=== PATIENT | female | born 1960 | race Caucasian/White ===

== ENCOUNTER 2018-02-13 14:49 | Emergency (ER) | payer OTHER | END 2018-02-13 16:42 | disposition home or self-care (01) | LOC: FTE 14:49 | DX: J20.9 Acute bronchitis, unspecified (principal) | CPT/HCPCS: 71045; 99283-25 ==

== ENCOUNTER 2019-02-06 19:59 | Emergency (ER) | payer OTHER ==
[2019-02-06] MEDS: morphine 4 MG/ML VIAL IV (21:07)
[2019-02-06] MEDS: ONDANSETRON 4 MG INJ IV (21:07)
== END 2019-02-06 22:54 | disposition home or self-care (01) ==
LOC: E/R 19:59
DX: R10.13 Epigastric pain (principal); R11.2 Nausea with vomiting, unspecified; I10 Essential (primary) hypertension; E11.9 Type 2 diabetes mellitus without complications
CPT/HCPCS: 36415; 76705; 80053; 81001; 83690; 84484; 85025; 93005; 96374; 96375; 99285-25